=== PATIENT | male | born 1945 | race Caucasian/White ===

== ENCOUNTER 2016-08-08 16:35 | Inpatient (IN) | payer OTHER, MEDICAID ==
[2016-08-08] MEDS ORDERED: IPRATROPIUM/ALBUTEROL 3 ML DEYVIAL IH ONE (16:48)
[2016-08-08] MEDS ORDERED: ALBUTEROL 3 ML DEYVIAL IH ONE (16:48)
[2016-08-08] MEDS ORDERED: NS 1,000 ML IV ONE (16:48)
--- NOTE | 2016-08-08 16:50 | EDPHY ---
H & P HPI/ROS: CHIEF COMPLAINT: Altered mental status HISTORY OF PRESENT ILLNESS: The patient is a 71 year old male, brought in by EMS from [place], who presents with altered mental status. The patient was found outside eating a cigarette and running into a wall in his wheelchair. The patient has a productive cough. He states he feels alright. He did say he has been vomiting. He reports no pain. During transport, the patient had BGL 141, he was tachycardic at 120, and 93% O2 on 6L. Further history is unobtainable, patient is a poor historian. REVIEW OF SYSTEMS: ROS is unobtainable due to patients altered mental status. PAST MEDICAL HISTORY: Left below knee amputation, History of lung cancer, Schizoaffective disorder, COPD, Hypertension Extrapyramidal and movement disorder, [place] thrombosis and embolism. SOCIAL HISTORY: Resides at [facility]. VITAL SIGNS: Reviewed by me GENERAL: Disheveled, vomited on arrival. Vomit was reddish colored. HEENT: Face: Cyanotic after vomiting. Eyes: No icterus, no injection. Mouth: moist mucous membranes. No erythema or lesions. Neck: supple with no adenopathy. LUNGS: Rhonchi or rales both bases, right worse than left. Wheezes. CARDIAC: Tachycardic, no rubs, murmurs or gallops. ABDOMEN: Soft, mildly distended. No guarding or rebound. BACK: No CVA tenderness. EXTREMITIES: No trauma. No edema. Tremor of right upper extremity NEURO: Oriented by person. SKIN: Warm and dry, no rash. PSYCHIATRIC: Normal mentation, no agitation. Portions of this note were transcribed by a medical care administrator. I personally performed a history, physical exam, medical decision making, and confirmed accuracy of information the transcribed note. - Medical/Surgical History Hx Asthma: No Hx Chronic Respiratory Disease: Yes Hx Diabetes: No Hx Cardiac Disease: No Hx Renal Disease: No Hx Cirrhosis: No Hx Alcoholism: No Hx HIV/AIDS: No Hx Splenectomy or Spleen Trauma: No Other PMH: Schizoaffective , extrapyramidal,urine retention, venous thrombosis, left at knee amputation, malign neoplasm lung/abdo, depression, essential htn, copd, pvd, congenital cystic kidney. - Social History Smoking Status: Current every day smoker Constitutional: Initial Vital Signs Temperature (C) 38.3 C 08/08/16 16:49 Heart Rate 123 H 08/08/16 16:49 Respiratory Rate 18 08/08/16 16:49 Blood Pressure 187/104 H 08/08/16 16:49 O2 Sat (%) 90 L 08/08/16 16:49 O2 Delivery Mode Nasal Cannula O2 (L/minute) 6 Allergies/Adverse Reactions: No Known Allergies Allergy (Unverified 02/11/15 20:49) Home Medications: Medication Instructions Recorded Albuterol [Proventil Inhaler HFA 2 puffs IH BID 03/07/15 (*)] Aspirin EC [Aspirin EC 81 mg (*)] 81 mg PO DAILY 03/07/15 Citalopram Hydrobromide [celeXA 10 10 mg PO DAILY 03/07/15 MG] Magnesium Hydroxide [Milk of 30 ml PO DAILY PRN 03/07/15 Magnesia (*)] Olanzapine [Zyprexa] 12.5 mg PO HS 03/07/15 Sennosides/Docusate Sodium 1 tab PO BID 03/07/15 [Senokot-S] Tiotropium Inhaler [Spiriva 18 mcg IH DAILY 03/07/15 Handihaler] Acetaminophen [Tylenol 325mg (*)] 650 mg PO HS 08/08/16 Acetaminophen [Tylenol ES 500 mg 1,000 mg PO BID PRN 08/08/16 (*)] Ergocalciferol [Vitamin D2 (*)] 50,000 unit PO Q30D 08/08/16 Finasteride [Proscar 5 MG (*)] 5 mg PO DAILY 08/08/16 Furosemide [Lasix 40 MG (*)] 40 mg PO DAILY 08/08/16 Potassium Cl [Klor-Con 20 meq (*)] 20 meq PO DAILY 08/08/16 Propylene Glycol [Lubricant Eye 1 drop EACHEYE BID 08/08/16 Drops] Tamsulosin HCl [Flomax 0.4 MG (*)] 0.4 mg PO DAILY 08/08/16 guaiFENesin/DEXTROMETHORPHAN 10 ml PO Q4 PRN 08/08/16 [Robitussin Dm Oral Liquid (*)] levOFLOXACIN [levAQUIN (*)] 750 mg PO DAILY AT 10AM #5 tab 08/10/16 Medical Decision Making - Diagnostics EKG Interpretation: EKG was obtained. See full reading in tracemaster. My interpretation: sinus tachycardia, no evidence of ischemia. Imaging: X-ray: Chest was obtained. I viewed the images myself on the PACS system. My interpretation of the images is: Right lobe pneumonia. The radiologist interpretation is: Acute right lower lobe pneumonia. I discussed the x-ray findings with the patient. ED Course/Re-evaluation: The patient vomited on arrival. He is only oriented to person. He meets severe sepsis criteria. He is tachycardic at 127 and febrile at 38.3. Plan for sepsis workup. Chest x-ray shows right lower lobe pneumonia. Plan to start the patient on antibiotics and admit. IV was established, patient received 650mg Levofloxacin and 1L normal saline. He will receive Tylenol PO for fever. 6:45 pm.: I spoke to Dr. Armas who accepts the patient for admission. Severe Sepsis/Septic Shock Care NoteThe patient presents to the ED with altered mental status, hypoxia and probable pneumonia. The patient did not have evidence of end-organ dysfunction and met not criteria for severe sepsis. - Data Points Laboratory Results: Laboratory Results 08/08/16 17:00 08/08/16 17:00 Microbiology Results: MICROBIOLOGY 08/08/16 18:35 Blood Blood Culture - Preliminary 08/08/16 17:00 Blood Blood Culture - Preliminary Medications Given: Discontinued Medications Acetaminophen (Tylenol) 650 mg PO Q4HRS PRN PRN Reason: Pain, Mild/Fever, Can Take PO Stop: 02/04/17 21:40 Last Admin: 08/09/16 19:49 Dose: 650 mg Albuterol (Proventil Neb) 3 ml IH EDNOW ONE Stop: 08/08/16 16:49 Last Admin: 08/08/16 17:31 Dose: 3 ml Albuterol (Proventil Inhaler) 2 puffs IH BID ON LICENSE OF [facility] Stop: 02/05/17 08:59 Last Admin: 08/10/16 08:50 Dose: 2 puffs Albuterol/Ipratropium (Duoneb) 3 ml IH EDNOW ONE Stop: 08/08/16 16:49 Last Admin: 08/08/16 17:32 Dose: 3 ml Artificial Tears (Natural Balance Tears) 1 drop EACHEYE BID ON LICENSE OF [facility] Stop: 02/05/17 08:59 Last Admin: 08/10/16 07:57 Dose: Not Given Aspirin Buffered (Aspirin Ec) 81 mg PO DAILY JESSICA Stop: 02/05/17 08:59 Last Admin: 08/10/16 07:48 Dose: 81 mg Citalopram Hydrobromide (Celexa) 10 mg PO DAILY JESSICA Stop: 02/05/17 08:59 Last Admin: 08/10/16 07:49 Dose: 10 mg Enoxaparin Sodium (Lovenox) 40 mg SC DAILY JESSICA Stop: 02/05/17 08:59 Last Admin: 08/10/16 07:55 Dose: 40 mg Finasteride (Proscar) 5 mg PO DAILY JESSICA Stop: 02/05/17 08:59 Last Admin: 08/10/16 07:50 Dose: 5 mg Furosemide (Lasix) 40 mg PO DAILY JESSICA Stop: 02/05/17 08:59 Last Admin: 08/10/16 07:48 Dose: 40 mg Sodium Chloride (Ns) 1,000 mls @ 0 mls/hr IV ONCE ONE PRN Reason: Wide Open Stop: 08/08/16 16:49 Last Admin: 08/08/16 17:30 Dose: 1,000 mls Levofloxacin/Dextrose (Levaquin 750 Mg (Premix)) 150 mls @ 100 mls/hr IV EDNOW ONE PRN Reason: Protocol Stop: 08/08/16 19:30 Last Admin: 08/08/16 18:23 Dose: 150 mls Ertapenem 1 gm/ Sodium (Chloride) 100 mls @ 200 mls/hr IV DAILY JESSICA PRN Reason: Protocol Stop: 09/08/16 08:59 Last Admin: 08/09/16 08:35 Dose: 100 mls Sodium Chloride (Ns) 1,000 mls @ 75 mls/hr IV CONT JESSICA Stop: 02/04/17 21:44 Last Admin: 08/09/16 12:56 Dose: 1,000 mls Levofloxacin (Levaquin) 750 mg PO DAILY AT 10AM JESSICA PRN Reason: Protocol Stop: 09/08/16 11:59 Last Admin: 08/10/16 10:07 Dose: 750 mg Olanzapine (Olanzapine) 12.5 mg PO HS JESSICA Stop: 02/05/17 20:59 Last Admin: 08/09/16 19:45 Dose: 12.5 mg Potassium Chloride (Klor-Con) 20 meq PO DAILY JESSICA Stop: 02/05/17 08:59 Last Admin: 08/10/16 07:51 Dose: 20 meq Senna/Docusate Sodium (Senokot-S) 1 tab PO BID JESSICA Stop: 02/05/17 08:59 Last Admin: 08/10/16 07:48 Dose: 1 tab Tamsulosin HCl (Flomax) 0.4 mg PO DAILY JESSICA Stop: 02/05/17 08:59 Last Admin: 08/10/16 07:48 Dose: 0.4 mg Tiotropium [place] (Spiriva Handihaler) 18 mcg IH DAILY JESSICA Stop: 02/05/17 08:59 Last Admin: 08/10/16 08:50 Dose: 1 inh Departure - Departure Disposition: [facility] Inpatient Acute Clinical Impression: Pneumonia Qualifiers: Pneumonia type: due to unspecified organism Laterality: right Lung location: lower lobe of lung Qualified Code(s): J18.1 - Lobar pneumonia, unspecified organism Altered mental state Qualifiers: Altered mental status type: unspecified Qualified Code(s): R41.82 - Altered mental status, unspecified Condition: Fair Report Scribed for: Shannan Staley Report Scribed by: Meseret Leonardo Date of Report: 08/08/16 Time of Report: 16:51
[2016-08-08 17:16] LABS: ABSOLUTE IMMATURE GRANULOCYTES 0.16 10^3/uL (0.00-0.10); ADD DIFF? NO; ADD MORPH? NO; ADD SCAN? NO; ATYPICAL LYMPHOCYTE FLAG 0 (0-99); FRAGMENT RBC FLAG 0 (0-99); HEMATOCRIT 50.2 % (40.0-51.0); HEMOGLOBIN 16.9 g/dL (13.7-17.5); LEFT SHIFT FLG 0 (0-99); LIPEMIA HEMOLYSIS FLAG 80 (0-99); MEAN CELL HEMOGLOBIN 31.2 pg (27.9-34.1); MEAN CELL HEMOGLOBIN CONCENTR. 33.7 g/dL (32.4-36.7); MEAN CELL VOLUME 92.6 fL (81.5-99.8); MEAN PLATELET VOLUME 8.7 fL (8.7-11.7); PLATELET CLUMPS FLAG 0 (0-99); PLATELET COUNT 380 10^3/uL (150-400); RED BLOOD CELL COUNT 5.42 10^6/uL (4.40-6.38); RED CELL DISTRIBUTION WIDTH 13.9 % (11.5-15.2)
[2016-08-08 17:26] LABS: ALANINE AMINOTRANSFERASE 37 IU/L (21-72); ALBUMIN 4.6 g/dL (3.5-5.0); ALKALINE PHOSPHATASE 124 IU/L (38-126); ANION GAP 13 mEq/L (8-16); ASPARTATE AMINOTRANSFERASE 30 IU/L (17-59); BILIRUBIN,TOTAL 0.8 mg/dL (0.1-1.4); BILIRUBIN-CONJUGATED 0.5 mg/dL (0.0-0.5); BILIRUBIN-UNCONJUGATED 0.3 mg/dL (0.0-1.1); CALCIUM 9.4 mg/dL (8.5-10.4); CARBON DIOXIDE 25 mEq/l (22-31); CHLORIDE 99 mEq/L (97-110); CREATININE 1.2 mg/dL (0.7-1.3); GLOMERULAR FILTRATION RATE > 60; GLUCOSE 137 mg/dL (70-100); POTASSIUM 4.5 mEq/L (3.5-5.2); SODIUM 137 mEq/L (134-144); TOTAL PROTEIN 9.1 g/dL (6.3-8.2)
[2016-08-08 17:37] LABS: TROPONIN I < 0.012 ng/mL (0-0.034)
[2016-08-08 17:39] LABS: APTT 34.5 SEC (23.0-38.0); INR 1.06 (0.83-1.16)
--- NOTE | 2016-08-08 17:57 | CPEKG ---
Heart Rate: 118 RR Interval: 508 P-R Interval: 148 QRSD Interval: 94 QT Interval: 324 QTC Interval: 455 P Salvo: 70 QRS Salvo: -57 T Wave Salvo: 76 EKG Severity - ABNORMAL ECG - EKG Impression: SINUS TACHYCARDIA EKG Impression: PROBABLE LEFT ATRIAL ABNORMALITY EKG Impression: LEFT ANTERIOR FASCICULAR BLOCK EKG Impression: BORDERLINE T ABNORMALITIES, ANT-LAT LEADS Electronically Signed By: Shannan Staley 08-Aug-2016 22:36:53
[2016-08-08 18:36] LABS: PROTIME(PATIENT) 13.9 SEC (12.0-15.0)
[2016-08-08] MEDS ORDERED: IBUPROFEN 600 MG TAB PO ONE (18:41)
[2016-08-08] MEDS ORDERED: ACETAMINOPHEN 325 MG TAB ONE (18:41)
[2016-08-08 19:52] LABS: COLOR RED; LEUKOCYTE ESTERASE,URINE NEGATIVE (NEGATIVE); NITRITE,URINE POSITIVE (NEGATIVE)
[2016-08-08 20:01] LABS: BACTERIA 4+ /hpf (NONE SEEN); MUCUS TRACE /lpf (NONE-1+)
[2016-08-08] MEDS ORDERED: ACETAMINOPHEN 325 MG TAB PO PRN (21:41)
[2016-08-08] MEDS ORDERED: ONDANSETRON 4 MG/2 ML VIAL IVP PRN (21:41)
[2016-08-08] MEDS: NS 1,000 ML IV SCH (22:44)
--- NOTE | 2016-08-08 23:40 | GHP ---
[f rep st] HISTORY AND PHYSICAL DATE OF ADMISSION: 08/08/2016 CHIEF COMPLAINT: Sent from nursing facility with confusion. HISTORY: This patient is a 71-year-old man who lives at a local nursing facility. He has been sent here today because he was confused. They noticed that he was eating a cigarette and steering his w heelchair into handley and otherwise acting fairly confused. As he arrived here by ambulance, he yeu ined fairly confused. He is unable to provide any other significant history at this time. This is due to his confusion. After the patient arrived here, he is hypoxemic and febrile, although it soun ds like these were not noted on his evaluation at the nursing facility before he left there. It is unknown to me if there are any recent changes in medications or any other illnesses acutely. REVIEW OF SYSTEMS: Unavailable due to confusion. PAST MEDICAL HISTORY: 1. Schizophrenia with movement disorders from medications. 2. Peripheral arterial disease. 3. Benign prostatic hypertrophy. 4. Small cell lung cancer in 2010, treated with chemotherapy. 5. Hyponatremia. 6. Pneumonia. 7. DVT. 8. Appendectomy. 9. Fracture of an elbow. 10. AKA of his left leg due to peripheral vascular disease. SOCIAL HISTORY: The patient lives a [facility], where he is dependent for ADLs. He has family here in the [place] area. The patient has been a smoker. FAMILY HISTORY: The patient is unable to provide any information. Looking at his [facility] here with the previous evaluations, no significant family medical illnesses were noted. HOME MEDICINES AT [facility]: Reconciled by our pharmacist in the electronic record, and I have rev iewed these and ordered appropriate medicines. There is nothing in particular that would be highly suspicious for his causative effect on his current change in mentation. PHYSICAL EXAMINATION: VITAL SIGNS: Temperature here is 38.3, blood pressure is high initially at 1 87/104, but spontaneously comes down to 101/73, pulse initially high at 123, respirations 18. GENER AL: The patient is lying on a hospital gurney asleep. I easily arouse him to a wakeful state. He does interact with me and does speak to me, but he clearly is disoriented, does not know where he is , what day it is, what time of the year it is, what time of day it is. He does know his name. He d oes not know why he is here when I tell him he is at the hospital. HEENT/NECK: No evidence of head injury. Otherwise normal. RESPIRATIONS: Not labored. Lungs are clear. HEART: Regular without murmur or gallop. ABDOMEN: Soft, nondistended, nontender. EXTREMITIES: Upper and lower warm and well perfused without edema. Joints were unremarkable. Good distal pulses. NEUROLOGIC: No eviden ce of focal weakness, but examination is hindered by his confusion. DATA REVIEWED: Chest x-ray was done in the emergency room, and I have reviewed the images from this . It is a 2-view x-ray. There is a poor inspiratory effort. Both hemidiaphragm silhouettes are ve ry clearly and distinctly seen across their course. There is some crowding of normal lung structure s, but I cannot definitely look at this and say there is an infiltrate. Some infiltrate particularl y in the right middle lobe is possible. LABORATORY DATA: White count 16,000 with predominance in neutrophils, otherwise unremarkable CBC. Unremarkable electrolytes. He has normal lactic acid level, normal basic metabolic panel and liver panel. Normal troponin. Urinalysis with 3-5 white cells, but negative leukocyte esterase. ASSESSMENT: 1. Acute febrile illness of uncertain etiology. One possibility would be a respiratory infection, but at the moment, there are no definite evidences of that. There is little to go on in terms of an y other localized site or source of infection or fever at this time. 2. Acute encephalopathy due to the febrile illness. 3. Chronic schizophrenia. PLAN: At this time, blood cultures have been obtained, but will need to follow closely his clinical course for any developing signs of a particular infectious syndrome. At this time, it is reasonabl e to treat him with empiric antibiotic therapy, at least until blood cultures come back and we see h ow his mental status changes progress. 1. Admit him to hospital. 2. Await culture results. 3. Empiric antibiotic therapy. 4. IV hydration. 5. Avoid sedating or mind-altering medications. 6. DVT prophylaxis. /[id number]/MODL
[2016-08-09 05:07] LABS: % IMMATURE GRANULYOCYTES 1.3 % (0.0-1.1); ABSOLUTE IMMATURE GRANULOCYTES 0.14 10^3/uL (0.00-0.10); ADD DIFF? NO; ADD MORPH? NO; ADD SCAN? NO; ATYPICAL LYMPHOCYTE FLAG 0 (0-99); FRAGMENT RBC FLAG 0 (0-99); HEMATOCRIT 44.3 % (40.0-51.0); HEMOGLOBIN 14.2 g/dL (13.7-17.5); LEFT SHIFT FLG 10 (0-99); LIPEMIA HEMOLYSIS FLAG 80 (0-99); MEAN CELL HEMOGLOBIN 30.3 pg (27.9-34.1); MEAN CELL HEMOGLOBIN CONCENTR. 32.1 g/dL (32.4-36.7); MEAN CELL VOLUME 94.7 fL (81.5-99.8); MEAN PLATELET VOLUME 8.9 fL (8.7-11.7); PLATELET CLUMPS FLAG 10 (0-99); PLATELET COUNT 315 10^3/uL (150-400); RED BLOOD CELL COUNT 4.68 10^6/uL (4.40-6.38); RED CELL DISTRIBUTION WIDTH 14.1 % (11.5-15.2)
[2016-08-09 05:36] LABS: ANION GAP 12 mEq/L (8-16); CALCIUM 8.5 mg/dL (8.5-10.4); CARBON DIOXIDE 24 mEq/l (22-31); CHLORIDE 105 mEq/L (97-110); CREATININE 1.3 mg/dL (0.7-1.3); GLOMERULAR FILTRATION RATE 55; GLUCOSE 90 mg/dL (70-100); MAGNESIUM 2.1 mg/dL (1.6-2.3); POTASSIUM 4.7 mEq/L (3.5-5.2); SODIUM 141 mEq/L (134-144)
[2016-08-09] MEDS: POTASSIUM CL 20 MEQ TAB PO SCH (08:18)
[2016-08-09] MEDS: ASPIRIN EC 81 MG TAB PO SCH (08:18)
[2016-08-09] MEDS: CITALOPRAM 20 MG TAB PO SCH (08:18)
[2016-08-09] MEDS: SENNOSIDES/DOCUSATE SODIUM TAB PO SCH ×2 (08:18→19:45)
[2016-08-09] MEDS: FINASTERIDE 5 MG TAB PO SCH (08:18)
[2016-08-09] MEDS: FUROSEMIDE 40 MG TAB PO SCH (08:18)
[2016-08-09] MEDS: ENOXAPARIN 40 MG/0.4 ML SYR SC SCH (08:21)
[2016-08-09] MEDS: TAMSULOSIN HCL 0.4 MG CAP PO SCH (08:35)
[2016-08-09] MEDS ORDERED: ERTAPENEM 1 GM in NS 100 ML IV SCH (09:00)
[2016-08-09] MEDS: TIOTROPIUM INHALER 18 MCG/DOSE 5 DOSE/MDI IH SCH (09:34)
[2016-08-09] MEDS: ALBUTEROL 60 PUFFS/8 GM MDI IH SCH ×2 (09:34→20:43)
--- NOTE | 2016-08-09 12:05 | HOSPPROG ---
Hospitalist Progress Note Assessment/Plan: This is a 71-year-old male new to my care today presenting with: # acute febrile illness/sepsis from suspected urinary source versus less likely pneumonia -Blood cultures are pending, urine culture was not done, set I visualized and interpreted the chest x-ray done today that showed a possible right lower lobe infiltrate - DC ertapenem - speech therapy evaluation for aspiration - resume levofloxacin that was started in the emergency department to cover both urinary pathogens and pneumonia # improving acute encephalopathy - continue to monitor # history of schizophrenia # history of hyponatremia # history DVT - continue Lovenox for DVT prophylaxis disposition: Continue inpatient care Subjective: improved confusion. He reports some pain pain with urination. Denies any cough or shortness of breath. No fevers or chills Objective: Vital Signs Temp Pulse Resp BP Pulse Ox 37.1 C 86 20 147/78 H 92 08/09/16 11:35 08/09/16 11:35 08/09/16 11:35 08/09/16 11:35 08/09/16 11:35 Laboratory Results 08/09/16 04:06 08/09/16 04:06 08/08/16 08/09/16 08/10/16 05:59 05:59 05:59 Intake Total 1575 Balance 1575 PT 13.9 SEC (12.0-15.0) 08/08/16 17:00 INR 1.06 (0.83-1.16) 08/08/16 17:00 visualized and personally interpreted the chest x-ray done today showing right lower lobe infiltrate - Physical Exam Constitutional: no apparent distress, appears nourished, not in pain Cardiovascular: regular rate and rhythym, no murmur, rub, or gallop Respiratory: no respiratory distress, no rales or rhonchi, clear to auscultation , No rhonchi Gastrointestinal: normoactive bowel sounds, soft, non-tender abdomen, no palpable masses, No guarding, No rebound Genitourinary: no bladder fullness, no bladder tenderness, no renal bruits Neurologic: AAOx3, CN II-XII Intact, No facial droop ICD10 Worksheet Patient Problems: Problems Problem Status Onset Schizophrenia Chronic Small cell lung cancer Chronic History of DVT (deep vein thrombosis) Chronic Acute renal failure (ARF) Acute Sepsis Acute Complicated UTI (urinary tract infection) Acute Pneumonia Acute Altered mental state Acute
[2016-08-09] MEDS: NS 1,000 ML IV SCH (12:56)
[2016-08-09] MEDS: PROPYLENE GLYCOL EACHEYE SCH ×2 (13:38→19:48)
[2016-08-09] MEDS ORDERED: OLANZapine 5 MG TAB PO SCH (21:00)
[2016-08-10] MEDS: SENNOSIDES/DOCUSATE SODIUM TAB PO SCH (07:48)
[2016-08-10] MEDS: TAMSULOSIN HCL 0.4 MG CAP PO SCH (07:48)
[2016-08-10] MEDS: ASPIRIN EC 81 MG TAB PO SCH (07:48)
[2016-08-10] MEDS: FUROSEMIDE 40 MG TAB PO SCH (07:48)
[2016-08-10] MEDS: CITALOPRAM 20 MG TAB PO SCH (07:49)
[2016-08-10] MEDS: FINASTERIDE 5 MG TAB PO SCH (07:50)
[2016-08-10] MEDS: POTASSIUM CL 20 MEQ TAB PO SCH (07:51)
[2016-08-10] MEDS: ENOXAPARIN 40 MG/0.4 ML SYR SC SCH (07:55)
[2016-08-10] MEDS: PROPYLENE GLYCOL EACHEYE SCH (07:57)
[2016-08-10] MEDS: ALBUTEROL 60 PUFFS/8 GM MDI IH SCH (08:50)
[2016-08-10] MEDS: TIOTROPIUM INHALER 18 MCG/DOSE 5 DOSE/MDI IH SCH (08:50)
[2016-08-10 11:06] VITALS: BP 141/75; PULSE 88; RESP 16; TEMP 98.9; O2SAT 92
--- NOTE | 2016-08-10 12:23 | PDIAF ---
- Diagnosis Diagnosis: uti Code Status: Full Code - Medication Management Discharge Medications: Medications to Continue on Transfer Albuterol [Proventil Inhaler HFA (*)] 2 puffs IH BID 03/07/15 [Last Taken ] Aspirin EC [Aspirin EC 81 mg (*)] 81 mg PO DAILY 03/07/15 [Last Taken 08/08/16] Citalopram Hydrobromide [celeXA 10 MG] 10 mg PO DAILY 03/07/15 [Last Taken 08/08] Magnesium Hydroxide [Milk of Magnesia (*)] 30 ml PO DAILY PRN 03/07/15 [Last Taken Unknown] Olanzapine [Zyprexa] 12.5 mg PO HS 03/07/15 [Last Taken 08/07/16] Sennosides/Docusate Sodium [Senokot-S] 1 tab PO BID 03/07/15 [Last Taken ] Tiotropium Inhaler [Spiriva Handihaler] 18 mcg IH DAILY 03/07/15 [Last Taken ] Acetaminophen [Tylenol 325mg (*)] 650 mg PO HS 08/08/16 [Last Taken 08/07/16] Acetaminophen [Tylenol ES 500 mg (*)] 1,000 mg PO BID PRN 08/08/16 [Last Taken Unknown] Ergocalciferol [Vitamin D2 (*)] 50,000 unit PO Q30D 08/08/16 [Last Taken ] Finasteride [Proscar 5 MG (*)] 5 mg PO DAILY 08/08/16 [Last Taken 08/08/16] Furosemide [Lasix 40 MG (*)] 40 mg PO DAILY 08/08/16 [Last Taken 08/08/16] Potassium Cl [Klor-Con 20 meq (*)] 20 meq PO DAILY 08/08/16 [Last Taken 08/08/16 ] Propylene Glycol [Lubricant Eye Drops] 1 drop EACHEYE BID 08/08/16 [Last Taken 08/08/16] Tamsulosin HCl [Flomax 0.4 MG (*)] 0.4 mg PO DAILY 08/08/16 [Last Taken 08/08/16 ] guaiFENesin/DEXTROMETHORPHAN [Robitussin Dm Oral Liquid (*)] 10 ml PO Q4 PRN [Last Taken Unknown] levOFLOXACIN [levAQUIN (*)] 750 mg PO DAILY AT 10AM #5 tab 08/10/16 [Last Taken Unknown] Discharge Medications: Refer to the Discharge Home Medication list for PRN reason. - Orders Services needed: Physical Therapy, Occupational Therapy, Speech Language Pathologist Diet Recommendation: no restrictions on diet Diet Texture: Regular Texture Diet - Follow Up Care Current Providers and Referrals: Patient,NotPresent [Primary Care Provider] - As per Instructions
--- NOTE | 2016-08-10 13:03 | GDS ---
[f rep st] DISCHARGE SUMMARY DISCHARGE DIAGNOSES: 1. Sepsis from urinary tract infection versus most likely, pneumonia. 2. Improved acute encephalopathy. 3. History of schizophrenia. 4. History of hyponatremia. 5. History of deep venous thrombosis. CONSULTANTS: None. HOSPITAL COURSE: Sepsis: The patient presented to the hospital with fever and confusion. He was i nitially tachycardic. A UA done on presentation revealed positive nitrates, 3-5 white blood cells, and 4+ bacteria. Urine culture was never sent. Blood cultures have been sent that have not grown a ny organisms. In the emergency department he was initially treated with levofloxacin, was then star jacob on ertapenem for which he received 1 dose but was switched back to levofloxacin yesterday. Sinc e being on antibiotics, he has been afebrile with no confusion. Other considerations for his sepsis were aspiration pneumonia. He has been seen by speech therapy a nd their evaluation is currently pending. PHYSICAL EXAM ON DISCHARGE: VITAL SIGNS: Blood pressure 134/81, pulse of 84, respiratory rate 22, O2 saturation 93% on 4 L, temperature afebrile. GENERAL: No acute distress. HEART: S1, S2. LUNG S: Clear. ABDOMEN: Soft. EXTREMITIES: No edema. LABS AND RADIOLOGY STUDIES: Chest x-ray done 08/09/2016 showed a stable, possible patchy infiltrate in the right lung base. DISCHARGE MEDICATIONS: Please refer to discharge medication reconciliation in [facility] for full det ails. Below is a preliminary list. NEW MEDICATIONS: On hospital discharge, levofloxacin to complete 7 day treatment. All other home medications were continued as usual home dosages. DISCHARGE INSTRUCTIONS: The patient will be discharged back to [facility] facility where he sh ould be closely monitored for aspiration and followed by Speech Therapy. He will need followup of h is of his final blood cultures. /[id number]/MODL
[2016-08-27] MEDS ORDERED: ERGOCALCIFEROL 50,000 I.UNIT CAP PO SCH (09:00)
== END 2016-08-10 14:15 | DRG 871 ==
LOC: EDUNIT# → F2W 21:03
PROVIDERS: ADMIT Internal Medicine; ATTEND Family Medicine
DX: A41.9 Sepsis, unspecified organism (principal); J18.9 Pneumonia, unspecified organism; N39.0 Urinary tract infection, site not specified; G93.40 Encephalopathy, unspecified; E87.1 Hypo-osmolality and hyponatremia; J44.9 Chronic obstructive pulmonary disease, unspecified; I10 Essential (primary) hypertension; F20.9 Schizophrenia, unspecified; Z85.118 Personal history of other malignant neoplasm of bronchus and lung; Z89.512 Acquired absence of left leg below knee; Z86.718 Personal history of other venous thrombosis and embolism
CPT/HCPCS: 92610-GN; 96365; 96366; 97161-GP; 97165-GO; 97530-GP; G8978-GP-CL; G8979-GP-CK; G8987-GO-CM; G8988-GO-CL; G8996-GN-CI; G8997-GN-CI; J1335; J1650; J1956

== ENCOUNTER → 2016-08-27 | Outpatient (CLI) | payer OTHER, MEDICAID ==
[~2016-08-27] MED LIST: IOPAMIDOL (ISOVUE-300) 100 ML BTL IV ONE
== END ==
LOC: FIMAGING 08:41
PROVIDERS: ATTEND Otolaryngology
DX: J39.2 Other diseases of pharynx (principal); J84.10 Pulmonary fibrosis, unspecified
CPT/HCPCS: 70491; Q9967